=== PATIENT | female | born 1995 | race Caucasian/White ===

== ENCOUNTER 2017-05-12 17:37 | Emergency (ER) | payer SELFPAY ==
[2017-05-12 18:05] LABS: % IMMATURE GRANULYOCYTES 0.3 % (0.0-1.1); ABSOLUTE IMMATURE GRANULOCYTES 0.02 10^3/uL (0.00-0.10); ADD DIFF? NO; ADD MORPH? NO; ADD SCAN? NO; ATYPICAL LYMPHOCYTE FLAG 30 (0-99); FRAGMENT RBC FLAG 0 (0-99); HEMATOCRIT 40.4 % (38.0-47.0); HEMOGLOBIN 13.8 g/dL (12.6-16.3); LEFT SHIFT FLG 0 (0-99); LIPEMIA HEMOLYSIS FLAG 90 (0-99); MEAN CELL HEMOGLOBIN 29.9 pg (27.9-34.1); MEAN CELL HEMOGLOBIN CONCENTR. 34.2 g/dL (32.4-36.7); MEAN CELL VOLUME 87.4 fL (81.5-99.8); MEAN PLATELET VOLUME 10.3 fL (8.7-11.7); PLATELET CLUMPS FLAG 0 (0-99); PLATELET COUNT 229 10^3/uL (150-400); RED BLOOD CELL COUNT 4.62 10^6/uL (4.18-5.33); RED CELL DISTRIBUTION WIDTH 12.2 % (11.5-15.2)
--- NOTE | 2017-05-12 18:05 | EDPHY ---
H & P Time Seen by Provider: 05/12/17 17:46 HPI/ROS: CHIEF COMPLAINT: Abdominal pelvic pain HISTORY OF PRESENT ILLNESS: Patient had which she thought was "bad [place] food " yesterday and mid day started having achy lower central abdominal pain. She initially felt like it was a cross between menstrual cramps and needing to go to the bathroom but it is persisted in today's worse. His lower abdomen both right and left sides. Not associated with urinary symptoms or vaginal discharge or bleeding. No vomiting or diarrhea and normal appetite today. Symptoms mild to moderate and better if she curls up. REVIEW OF SYSTEMS: Eye: no change in vision ENT: no sore throat Cardiac: no chest pain or syncope Pulmonary: no cough or SOB Abdomen: HPI Musculoskeletal: no back pain Skin: no rash Neuro: no headache Constitutional: no fever : no urinary symptoms A comprehensive 10 point review of systems is otherwise negative aside from elements mentioned in the history of present illness. PAST MEDICAL HISTORY: IUD otherwise negative Social history: Sexually active General Appearance: Alert and conversant, cooperative. Eyes: No scleral icterus. ENT, Mouth: Normal mucous membranes. Respiratory: Normal respiratory effort, breath sounds equal, lungs are clear to auscultation. Cardiovascular: Regular rate and rhythm. Gastrointestinal: Bilateral lower quadrant tenderness without rebound or guarding. Neurological: Alert and oriented x3. Normally conversant. Face symmetric, normal movement and sensation in all extremities. Skin: Warm and dry, no rashes. Musculoskeletal: No peripheral edema and no joint swelling. Psychiatric: Not agitated. Emergency Department course/MDM: Urinalysis, test, pelvic exam and ultrasound. 1814: Pelvic exam performed with patient's nurse in the room shows no cervical motion tenderness, normal internal and external genitalia, no adnexal tenderness , no cervical motion tenderness. The clinical suspicion for PID is low enough that I would defer any treatment unless she tests positive. Finer at 1946, R side hemorrhagic cyst, 4 x 3.7 cm, appendix not seen but no secondary signs of inflammation or appendicitis. Results discussed the patient at this time. Questions answered. She is comfortable and states comfortable going home. Narcotic pain medication declined. Smoking Status: Never smoked Constitutional: Initial Vital Signs Temperature (C) 37.2 C 05/12/17 17:40 Heart Rate 84 05/12/17 17:40 Respiratory Rate 16 05/12/17 17:40 Blood Pressure 120/73 05/12/17 17:40 O2 Sat (%) 99 05/12/17 17:40 O2 Delivery Mode Room Air Allergies/Adverse Reactions: No Known Allergies Allergy (Unverified 05/12/17 17:39) Home Medications: Medication Instructions Recorded MIRENA 05/12/17 Medical Decision Making - Diagnostics Imaging Results: Imaging Impressions Abdomen Ultrasound 05/12/17 17:58 Impression: 1. Right ovarian cyst with a few thin internal septations. This could represent sequela from previous hemorrhagic cyst or dominant follicular cyst. 2. Normal-appearing uterus with IUD in place. 3. Small left ovary. 4. Appendix is not positively identified although there is no evidence of a dilated appendix in the right lower quadrant. Findings discussed with Samuel Zelaya M.D. at 19:45 hour, 05/12/2017. Pelvic/Renal Ultrasound 05/12/17 17:58 Impression: 1. Right ovarian cyst with a few thin internal septations. This could represent sequela from previous hemorrhagic cyst or dominant follicular cyst. 2. Normal-appearing uterus with IUD in place. 3. Small left ovary. 4. Appendix is not positively identified although there is no evidence of a dilated appendix in the right lower quadrant. Findings discussed with Samuel Zelaya M.D. at 19:45 hour, 05/12/2017. Differential Diagnosis: Differential considered including but not limited to appendicitis, ectopic , ovarian cyst, PID, endometriosis, related to the IUD. - Data Points Laboratory Results: Laboratory Results 05/12/17 17:52 05/12/17 17:52 05/12/17 05/12/17 05/12/17 18:19 18:00 17:52 WBC RBC Hgb Hct MCV MCH MCHC RDW Plt Count MPV Neut % (Auto) Lymph % (Auto) [place] % (Auto) Eos % (Auto) Baso % (Auto) Nucleat RBC Rel Count Absolute Neuts (auto) Absolute Lymphs (auto) Absolute Monos (auto) Absolute Eos (auto) Absolute Basos (auto) Absolute Nucleated RBC Immature Gran % Immature Gran # Sodium Potassium Chloride Carbon Dioxide Anion Gap BUN Creatinine Estimated GFR Glucose Calcium Beta HCG, Qual NEGATIVE Urine RBC 1-3 /hpf /hpf (0-3) Urine WBC 1-3 /hpf /hpf (0-3) Ur Epithelial Cells TRACE /lpf /lpf (NONE-1+) Urine Bacteria TRACE /hpf H /hpf (NONE SEEN) C.trachomatis RNA (TMA) Pending N.gonorrhoeae RNA (TMA) Pending 05/12/17 05/12/17 17:52 17:52 WBC 6.68 10^3/uL 10^3/uL (3.80-9.50) RBC 4.62 10^6/uL 10^6/uL (4.18-5.33) Hgb 13.8 g/dL g/dL (12.6-16.3) Hct 40.4 % % (38.0-47.0) MCV 87.4 fL fL (81.5-99.8) MCH 29.9 pg pg (27.9-34.1) MCHC 34.2 g/dL g/dL (32.4-36.7) RDW 12.2 % % (11.5-15.2) Plt Count 229 10^3/uL 10^3/uL (150-400) MPV 10.3 fL fL (8.7-11.7) Neut % (Auto) 41.4 % % (39.3-74.2) Lymph % (Auto) 48.8 % H % (15.0-45.0) [place] % (Auto) 7.2 % % (4.5-13.0) Eos % (Auto) 1.6 % % (0.6-7.6) Baso % (Auto) 0.7 % % (0.3-1.7) Nucleat RBC Rel Count 0.0 % % (0.0-0.2) Absolute Neuts (auto) 2.76 10^3/uL 10^3/uL (1.70-6.50) Absolute Lymphs (auto) 3.26 10^3/uL H 10^3/uL (1.00-3.00) Absolute Monos (auto) 0.48 10^3/uL 10^3/uL (0.30-0.80) Absolute Eos (auto) 0.11 10^3/uL 10^3/uL (0.03-0.40) Absolute Basos (auto) 0.05 10^3/uL 10^3/uL (0.02-0.10) Absolute Nucleated RBC 0.00 10^3/uL 10^3/uL (0-0.01) Immature Gran % 0.3 % % (0.0-1.1) Immature Gran # 0.02 10^3/uL 10^3/uL (0.00-0.10) Sodium 142 mEq/L mEq/L (134-144) Potassium 3.7 mEq/L mEq/L (3.5-5.2) Chloride 103 mEq/L mEq/L (97-110) Carbon Dioxide 23 mEq/l mEq/l (22-31) Anion Gap 16 mEq/L mEq/L (8-16) BUN 6 mg/dL L mg/dL (7-23) Creatinine 0.6 mg/dL mg/dL (0.6-1.0) Estimated GFR > 60 Glucose 76 mg/dL mg/dL (70-100) Calcium 9.5 mg/dL mg/dL (8.5-10.4) Beta HCG, Qual Urine RBC Urine WBC Ur Epithelial Cells Urine Bacteria C.trachomatis RNA (TMA) N.gonorrhoeae RNA (TMA) Departure - Departure Disposition: Home, Routine, Self-Care Clinical Impression: Ovarian cyst, right Condition: Good Instructions: Ovarian Cyst (ED) Additional Instructions: Ibuprofen 600 mg every 8 hours as needed for the next 3 days as discussed. Please follow-up with Dr. Castellano this week appears still symptomatic otherwise within the next month. Return for evaluation for worsening or severe pain, fever, vomiting. Call [phone] tomorrow for results of STD testing. Referrals: Laurie Castellano MD [Medical Doctor] - As per Instructions
[2017-05-12 18:28] LABS: BACTERIA TRACE /hpf (NONE SEEN)
[2017-05-12 18:30] LABS: ANION GAP 16 mEq/L (8-16); CALCIUM 9.5 mg/dL (8.5-10.4); CARBON DIOXIDE 23 mEq/l (22-31); CHLORIDE 103 mEq/L (97-110); CREATININE 0.6 mg/dL (0.6-1.0); GLOMERULAR FILTRATION RATE > 60; GLUCOSE 76 mg/dL (70-100); POTASSIUM 3.7 mEq/L (3.5-5.2); SODIUM 142 mEq/L (134-144)
[2017-05-12 19:06] VITALS: O2SAT 97
[2017-05-12 20:13] VITALS: BP 118/70; PULSE 68; RESP 16; TEMP 98.2
[2017-05-13 12:47] LABS: CHLAMYDIA AMPLIFICATION GENPRB NEGATIVE (NEGATIVE)
== END 2017-05-12 20:13 | disposition home or self-care (01) ==
DX: N83.201 Unspecified ovarian cyst, right side (principal)